=== PATIENT | female | born 1955 | race Caucasian/White ===

== ENCOUNTER 2021-06-21 20:02 | Observation (INO) | payer BC ==
[2021-06-21] MEDS ORDERED: Aspirin 325 MG TAB ONE (21:16)
[2021-06-21 21:24] LABS: #Basophils 0.1 10x3/uL (0.0-0.2); #Eosinphils 0.1 10x3/uL (0.0-0.5); #Monocytes 0.3 10x3/uL (0.0-1.1); #Neutrophils 3.7 10x3/uL (1.5-8.4); %Basophils 1.3 % (0.0-2.0); %Eosinophils 2.1 % (0.0-6.0); %Monocytes 4.8 % (0.0-10.0); %Neutrophils 70.4 % (40.0-75.0); Mean Corpuscular HGB CONC 32.2 g/dL (32.0-36.0); Mean Corpuscular Hemoglobin 28.8 pg (27.0-33.0); Mean Corpuscular Volume 89.6 fl (81.6-98.3); Mean Platelet Volume 9.3 fl (7.4-10.4); Platelet Count 268 10x3/uL (150-450); RBC Distribution Width 13.2 % (11.5-14.5); Red Blood Cell (RBC) Count 4.51 10x6/uL (3.90-5.03); White Blood Cell (WBC) Count 5.2 10x3/uL (3.5-10.5)
[2021-06-21 21:29] LABS: ALT (SGPT) 7 U/L (8-55); AST (SGOT) 13 U/L (5-34); Albumin 3.8 g/dL (3.4-4.8); Alkaline Phosphatase 83 U/L (40-110); Anion Gap 10 mmol/L (10-20); BUN (Urea Nitrogen) 17 mg/dL (9.8-20.1); Bilirubin, Total 0.6 mg/dL (0.2-1.2); Calc. Creatinine Clearance 0 mL/min (70-130); Calcium 8.6 mg/dL (7.8-10.44); Carbon Dioxide 28 mmol/L (23-31); Chloride 103 mmol/L (98-107); Globulin 2.5 g/dL (2.4-3.5); Glucose 83 mg/dL (80-115); Potassium 3.9 mmol/L (3.5-5.1); Protein, Total 6.3 g/dL (5.8-8.1); Sodium 137 mmol/L (136-145)
[2021-06-21] MEDS ORDERED: Acetaminophen 325 MG TAB PO PRN (22:42)
[2021-06-21 22:47] LABS: SARS-CoV-2 NAA Rapid Test Not Detected (NotDetected)
[2021-06-21 23:21] LABS: Magnesium 2.1 mg/dL (1.6-2.6)
[2021-06-21] MEDS ORDERED: Atorvastatin Calcium 40 MG TAB PO SCH (23:45)
[2021-06-22] MEDS ORDERED: FLU VACC QS2021-22(65YR UP)/PF 240 MCG/0.7 ML SYRINGE IM ONE (00:15)
[2021-06-22] MEDS: Sodium Chloride 0.9% 1,000 ML IV SCH ×2 (00:35→19:54)
[2021-06-22 05:48] LABS: #Basophils 0.1 10x3/uL (0.0-0.2); #Eosinphils 0.1 10x3/uL (0.0-0.5); #Monocytes 0.3 10x3/uL (0.0-1.1); #Neutrophils 3.1 10x3/uL (1.5-8.4); %Basophils 1.3 % (0.0-2.0); %Eosinophils 2.6 % (0.0-6.0); %Lymphocytes 32.3 % (18.0-47.0); %Monocytes 6.3 % (0.0-10.0); %Neutrophils 57.3 % (40.0-75.0); Hemoglobin 12.7 g/dL (12.0-15.5); Mean Corpuscular HGB CONC 32.2 g/dL (32.0-36.0); Mean Corpuscular Hemoglobin 28.3 pg (27.0-33.0); Mean Corpuscular Volume 88.2 fl (81.6-98.3); Mean Platelet Volume 9.4 fl (7.4-10.4); Platelet Count 246 10x3/uL (150-450); RBC Distribution Width 13.2 % (11.5-14.5); Red Blood Cell (RBC) Count 4.48 10x6/uL (3.90-5.03); White Blood Cell (WBC) Count 5.4 10x3/uL (3.5-10.5)
[2021-06-22 06:01] LABS: Anion Gap 10 mmol/L (10-20); BUN (Urea Nitrogen) 15 mg/dL (9.8-20.1); Calc. Creatinine Clearance 46 mL/min (70-130); Calcium 8.8 mg/dL (7.8-10.44); Carbon Dioxide 28 mmol/L (23-31); Chloride 104 mmol/L (98-107); Cholesterol 172 mg/dl (< 200 Desired); Glucose 87 mg/dL (80-115); HDL Cholesterol 43 mg/dL (>60 Neg Risk); LDL Cholesterol, Calculated 117 mg/dL; Potassium 3.8 mmol/L (3.5-5.1); Sodium 138 mmol/L (136-145); Triglycerides 60 mg/dL (Less than 150)
[2021-06-22] MEDS: Enoxaparin Sodium 40 MG/0.4 ML SYRINGE SC SCH (09:39)
[2021-06-22] MEDS: Aspirin 81 mg Enteric Coated Tablet PO SCH (09:39)
[2021-06-22] MEDS ORDERED: hydrALAZINE 20 MG/ML VIAL SLOW IVP PRN (10:11)
[2021-06-22] MEDS ORDERED: Amlodipine 5 MG TAB PO SCH ×2 (10:30→14:15)
[2021-06-22] MEDS: hydrALAZINE 25 MG TAB PO SCH ×2 (17:33→20:34)
[2021-06-22] MEDS ORDERED: Atorvastatin Calcium 40 MG TAB PO SCH ×2 (21:00)
[2021-06-23 06:37] LABS: Anion Gap 14 mmol/L (10-20); BUN (Urea Nitrogen) 13 mg/dL (9.8-20.1); Calc. Creatinine Clearance 50 mL/min (70-130); Calcium 9.5 mg/dL (7.8-10.44); Carbon Dioxide 25 mmol/L (23-31); Chloride 103 mmol/L (98-107); Glucose 93 mg/dL (80-115); Magnesium 1.9 mg/dL (1.6-2.6); Phosphorus 3.4 mg/dL (2.3-4.7); Potassium 3.9 mmol/L (3.5-5.1); Sodium 138 mmol/L (136-145)
[2021-06-23 07:00] LABS: #Basophils 0.1 10x3/uL (0.0-0.2); #Eosinphils 0.1 10x3/uL (0.0-0.5); #Monocytes 0.3 10x3/uL (0.0-1.1); #Neutrophils 4.4 10x3/uL (1.5-8.4); %Basophils 1.1 % (0.0-2.0); %Eosinophils 1.2 % (0.0-6.0); %Lymphocytes 23.8 % (18.0-47.0); %Monocytes 4.8 % (0.0-10.0); %Neutrophils 68.8 % (40.0-75.0); Hemoglobin 15.1 g/dL (12.0-15.5); Mean Corpuscular HGB CONC 33.3 g/dL (32.0-36.0); Mean Corpuscular Hemoglobin 28.7 pg (27.0-33.0); Mean Corpuscular Volume 86.1 fl (81.6-98.3); Mean Platelet Volume 9.6 fl (7.4-10.4); Platelet Count 296 10x3/uL (150-450); RBC Distribution Width 13.5 % (11.5-14.5); Red Blood Cell (RBC) Count 5.27 10x6/uL (3.90-5.03); White Blood Cell (WBC) Count 6.4 10x3/uL (3.5-10.5)
[2021-06-23] MEDS: Aspirin 81 mg Enteric Coated Tablet PO SCH (08:39)
[2021-06-23] MEDS ORDERED: Amlodipine 5 MG TAB PO SCH (09:00)
[2021-06-23] MEDS ORDERED: Amlodipine 10 MG TAB PO SCH (09:00)
[2021-06-23 11:42] VITALS: TEMP 97.7
[2021-06-23 12:08] VITALS: BMI 23.1
[2021-06-23 15:27] VITALS: BP 114/81
[2021-06-23] MEDS: Enoxaparin Sodium 40 MG/0.4 ML SYRINGE SC SCH (16:24)
[2021-06-23] MEDS: hydrALAZINE 25 MG TAB PO SCH (20:03)
[2021-06-23] MEDS ORDERED: Losartan 25 MG TAB PO SCH (21:00)
[2021-06-24] MEDS ORDERED: Amlodipine 10 MG TAB PO SCH (09:00)
== END 2021-06-23 17:05 | disposition home or self-care (01) ==
LOC: CSHERS 20:02 → CSHTELE 23:28
PROVIDERS: ADMIT Family Medicine; ATTEND Family Medicine
DX: R55 Syncope and collapse (principal); G45.9 Transient cerebral ischemic attack, unspecified; I16.1 Hypertensive emergency; I50.32 Chronic diastolic (congestive) heart failure; N18.32 Chronic kidney disease, stage 3b; G93.49 Other encephalopathy; Z79.82 Long term (current) use of aspirin; J18.1 Lobar pneumonia, unspecified organism; M54.9 Dorsalgia, unspecified; G89.29 Other chronic pain; Z20.822 Contact with and (suspected) exposure to COVID-19
CPT/HCPCS: 36415; 70450; 70496; 70498; 70551; 71045; 71046; 76770; 80048; 80053; 80061; 83036; 83735; 84100; 84484; 85025; 93005; 93306; G0378; J7050; U0002